=== PATIENT | male | born 1955 | race Caucasian/White ===

== ENCOUNTER 2018-10-01 01:36 | Inpatient (IN) ==
[2018-10-01] MEDS ORDERED: ASPIRIN PO ONE (01:41)
--- NOTE | 2018-10-01 02:14 | PROVIDER DOCUMENTATION ---
HPI-Chest Pain - General Chief Complaint: Chest Pain Stated Complaint: chest pain Time Seen by Provider: 10/01/18 02:11 Allergies/Adverse Reactions: Patient Allergies Allergy/AdvReac Type Severity Reaction Status Date / Time Penicillins Allergy Mild RASH Verified 09/30/15 04:10 Home Medications: Home Medication List Medication Instructions Recorded Confirmed Last Taken Type Amlodipine Besylate 10 mg PO DAILY 07/17/13 09/30/15 09/29/15 19:00 History Fenofibrate 160 mg PO DAILY 07/17/13 09/30/15 09/29/15 19:00 History Isosorbide Mononitrate E.r. [Imdur] 60 mg PO DAILY 07/17/13 09/30/15 09/29/15 19:00 History Metoprolol Succinate E.r. [Toprol 100 mg PO DAILY 07/17/13 09/30/15 09/29/15 19:00 History Xl] Omeprazole [Prilosec] 20 mg PO DAILY 07/17/13 09/30/15 09/29/15 20:00 History Zolpidem [Ambien] 10 mg PO QHS 07/17/13 09/30/15 09/28/15 20:00 History ATORVAstatin [Lipitor] 40 mg PO DAILY 12/10/13 09/30/15 09/29/15 19:00 History Nitroglycerin [Nitrostat] 0.4 mg SL PRN PRN 12/10/13 09/30/15 09/30/15 03:00 History Aspirin 325 mg PO DAILY #0 12/13/13 09/30/15 09/29/15 19:00 Rx Clopidogrel [Plavix] 75 mg PO DAILY #0 12/13/13 09/30/15 09/29/15 19:00 Rx - History of Present Illness-CP Nature of Presenting Problem: A 63 Y/O MALE WITH PMH OF CAD S/P CABG AND STENTS, GRAFT FAILURE PRESENTS WITH CP 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 RADIATES TO BACK AND SHOULDERS. HAS SOME NAUSEA. DENIES ANY OTHER SYMPTOMS EXCEPT FOR MILD SOB. SMOKES+, ALCOHOL+. DENIES ILLICITS. Location: reports: substernal, central Chest Pain Radiation: reports: shoulders, back Quality of Pain: reports: sharp Severity in ED: moderate Onset/Duration: abrupt, just prior to arrival Timing: still present, intermittent Context/Activities at Onset: reports: sleep Modifying Factors: improves with: nothing Associated Symptoms: reports: shortness of breath. denies: diaphoresis, dizziness, edema, fatigue, fever/chills, headache, heartburn, nausea, rash, syncope, vomiting Nitro Today/Relief: no nitro taken today Aspirin Treatment Today: 325 mg x 1 Prior Chest Pain/Cardiac Workup: reports: heart attack Similar Symptoms Previously?: Yes Recently Seen Here or By Another Healthcare Provider: No Review of Systems - Adult - REVIEW OF SYSTEMS - ADULT Constitutional: denies: no symptoms reported Eyes: denies: no symptoms reported Ears, Nose, Mouth & Throat: denies: no symptoms reported Cardiovascular: reports: see HPI Respiratory: reports: see HPI Gastrointestinal: denies: no symptoms reported Genitourinary: denies: no symptoms reported Musculoskeletal: denies: no symptoms reported Integumentary: denies: no symptoms reported Neurological: denies: no symptoms reported Psychiatric: denies: no symptoms reported Endocrine: denies: no symptoms reported Hematologic/Lymphatic: denies: no symptoms reported Allergic/Immunologic: denies: no symptoms reported Past History - Adult - PAST MEDICAL HISTORY-ADULT Review of Records: reports: Old Records Reviewed, Nursing Assessment Review, Medications Reviewed, Social history reviewed & non-contributory. Major Childhood Illnesses: reports: denies history Cardiovascular: reports: CAD, HTN, hyperlipidemia, [place] Respiratory: reports: asthma, COPD Genitourinary: reports: prostate cancer - PRIOR SURGERIES/PROCEDURES Surgical/Procedure History: reports: CABG, cardiac stent, joint replacement (tot al knee), other (TURP) - PRIOR HOSPITALIZATIONS Prior Hospitalizations: reports: for similar symptoms - IMMUNIZATION STATUS Childhood Immunizations: See Nurse Assessment Flu Vaccine: See Nurse Assessment - FAMILY HISTORY Family History: reviewed, not pertinent Physical Exam-General - PHYSICAL EXAM-ADULT Initial Vital Signs Reviewed: Yes - CONSTITUTIONAL General Appearance: mild distress - EYES Eyes: PERRL/EOMI - HEAD, EARS, NOSE, MOUTH & THROAT HENMT: normocephalic/atraumatic, moist mucous membranes, normal ENT inspection - NECK Neck: supple - RESPIRATORY Respiratory: chest non-tender, wheezing - CARDIOVASCULAR Cardiovascular: regular rate, rhythm, no edema, no JVD, no murmur - GASTROINTESTINAL (ABDOMEN) Abdominal Exam: non tender, soft - MUSCULOSKELETAL Back Exam: normal inspection Extremity: no pedal edema Peripheral Pulses: radial (R): 2+, radial (L): 2+ - SKIN Integumentary: normal color, warm/dry - NEUROLOGIC Neurologic: grossly normal - PSYCHIATRIC Psych/Mental Status: normal mood/affect, normal thought content, normal thought process, oriented x 3 - HEART Score HEART Score: History: Moderately Suspicious HEART Score: ECG: Non-Specific Repolarization Disturbance/LBBB/PM HEART Score: Age: 45-65 Years HEART Score: Risk Factors for Atherosclerotic Disease: > or = 3 Risk Factors or History of Atherosclerotic Disease HEART Score: Troponin: < or = Normal Limit Total HEART Score:: 5 Progress - PLAN OF CARE/RESULTS Progress/Plan/Lab Results: Vital Signs - 8 hr 10/01/18 01:38 10/01/18 02:15 Temperature 97.5 F L Pulse Rate 79 85 Respiratory Rate 18 16 Blood Pressure 125/0 O2 Sat by Pulse Oximetry 97 Laboratory Results - last 24 hr 10/01/18 10/01/18 10/01/18 01:55 01:55 01:55 WBC 9.54 RBC 4.38 L Hgb 14.7 Hct 41.5 L MCV 94.7 MCH 33.6 H MCHC 35.4 RDW Std Deviation 12.6 Plt Count 172 MPV 9.6 Immature Gran % (Auto) 0.4 Neut % (Auto) 62.4 Lymph % (Auto) 19.5 L Kimball % (Auto) 12.1 H Eos % (Auto) 5.1 Baso % (Auto) 0.5 Immature Gran # (Auto) 0.04 Neut # (Auto) 5.95 Lymph # (Auto) 1.86 Kimball # (Auto) 1.15 H Eos # (Auto) 0.49 Baso # (Auto) 0.05 PT INR PTT (Actin FS) Sodium 139 Potassium 3.3 L Chloride 101 Carbon Dioxide 27 Anion Gap 11 BUN 9 Creatinine 0.8 Estimated GFR/1.73 m2 > 60 BUN/Creatinine Ratio 11 Glucose 109 H Calculated Osmolality 277 Calcium 9.0 Total Bilirubin 0.49 AST 14 ALT 14 Alkaline Phosphatase 69 Creatine Kinase 135 Troponin T Ewe-M-Xvqhrafnssr Pept 123 Total Protein 6.4 Albumin 3.8 Globulin 2.6 Albumin/Globulin Ratio 1.5 10/01/18 10/01/18 01:55 01:55 WBC RBC Hgb Hct MCV MCH MCHC RDW Std Deviation Plt Count MPV Immature Gran % (Auto) Neut % (Auto) Lymph % (Auto) Kimball % (Auto) Eos % (Auto) Baso % (Auto) Immature Gran # (Auto) Neut # (Auto) Lymph # (Auto) Kimball # (Auto) Eos # (Auto) Baso # (Auto) PT 13.1 INR 0.92 PTT (Actin FS) 37.3 Sodium Potassium Chloride Carbon Dioxide Anion Gap BUN Creatinine Estimated GFR/1.73 m2 BUN/Creatinine Ratio Glucose Calculated Osmolality Calcium Total Bilirubin AST ALT Alkaline Phosphatase Creatine Kinase Troponin T < 0.010 Ilp-T-Lzsdoutrvbd Pept Total Protein Albumin Globulin Albumin/Globulin Ratio Orders Category Date Time Status Cardiac Monitoring DIRECTED Care 10/01/18 01:41 Active Oxygen Therapy- ED Nursing DIRECTED Care 10/01/18 01:41 Active Saline Loc NOW Care 10/01/18 01:41 Active CHEST-PORTABLE [RAD] Stat Exams 10/01/18 02:05 Taken CBC WITH ELECTRONIC DIFF [HEME] Stat Lab 10/01/18 01:55 Completed CK PROFILE [SP CHEM] Stat Lab 10/01/18 01:55 Completed COMPREHENSIVE METABOLIC PANEL [CHEM] Stat Lab 10/01/18 01:55 Completed PRO B-NATRIURETIC PEPTIDE Stat Lab 10/01/18 01:55 Completed PROTIME WITH INR [COAG] Stat Lab 10/01/18 01:55 Completed PTT [COAG] Stat Lab 10/01/18 01:55 Completed TROPONIN T Stat Lab 10/01/18 01:55 Completed Albuterol 2.5MG/Ipratrop 0.5MG [Duoneb (A & A)] Med 10/01/18 02:15 Discontinued 3 ml INH NOW ONE Aspirin Med 10/01/18 01:41 Discontinued 325 mg PO NOW ONE Nitroglycerin Med 10/01/18 02:15 Discontinued 1 inch TOP NOW ONE Aerosol Treatments Routine Oth 10/01/18 02:17 Completed Aerosol Treatments Stat Oth 10/01/18 02:17 Completed CP/SOB/Palp >45 yrs of Age Stat Oth 10/01/18 01:41 Ordered EKG [EKG] Stat Ther 10/01/18 01:41 Ordered Result Diagrams: 10/01/18 01:55 10/01/18 01:55 - CONSULTS/PCP/HOSPITALIST Notification #1 *Consult/PCP/Hospitalist*: DR MCGEE Time Discussed: 04:21 Consult Disposition: Admit (r/o ACS) Departure - Departure Date of Disposition Decision: 10/01/18 Time of Disposition Decision: 04:22 DIAGNOSIS: Chest pain Disposition: ADMITTED INPATIENT 09 Certified Medical Emergency: Emergent Condition: Stable Referrals and Follow-Ups: Oliver Slaughter MD [Primary Care Provider] - - Critical Care Note This patient required my direct & personal management of CC.: No Attestation - Physician/ SANTOS Attestation Patient care was provided by Advanced Practice Provider:: No The physician spent face to face time with patient:: Yes Advanced Practice Provider documentation review:: Supervising physician onsite and consulted in the evaluation and care of this patient. The physician did have a face to face encounter with the patient.
[2018-10-01] MEDS ORDERED: DUONEB (A & A) INH ONE (02:15)
[2018-10-01] MEDS ORDERED: NITROGLYCERIN TOP ONE (02:15)
[2018-10-01 02:30] LABS: BASO# 0.05 X1000 (0.0-0.2); BASO% 0.5 % (0.0-0.8); EOS# 0.49 X1000 (0.0-0.7); EOS% 5.1 % (0.0-10.0); HEMATOCRIT 41.5 % (42.0-52.0); HEMOGLOBIN 14.7 g/dL (14.0-18.0); IMM GRAN# 0.04 X1000 (0.0-0.04); IMM GRAN% 0.4 % (0.0-0.5); LYMPH# 1.86 X1000 (1.2-3.4); LYMPH% 19.5 % (20.5-51.1); MCH 33.6 PG (27-31); MCHC 35.4 g/dL (33-37); MCV 94.7 FL (81-99); MONO# 1.15 X1000 (0.11-0.59); MONO% 12.1 % (1.7-9.3); MPV 9.6 FL (7.4-10.4); NEUT# 5.95 X1000 (1.4-6.5); NEUT% 62.4 % (42.2-75.2); PLT 172 X1000 (130-400); RBC 4.38 XMIL (4.7-6.1); RDW 12.6 % (11.5-14.5); WBC 9.54 X1000 (4.8-10.8)
[2018-10-01 02:54] LABS: AGAP 11; ALB/GLOB RATIO 1.5; ALBUMIN 3.8 g/dL (3.5-5.0); ALKALINE PHOSPHATASE 69 U/L (32-122); BUN 9 mg/dL (8-22); CHLORIDE 101 mmol/L (98-107); CK PROFILE 135 U/L (24-204); COSMO 277; CREATININE 0.8 mg/dL (0.7-1.2); ESTIMATED GFR > 60; GLUCOSE 109 mg/dL (70-104); GOT 14 U/L (10-34); GPT 14 U/L (10-44); POTASSIUM 3.3 mmol/L (3.5-5.1); SODIUM 139 mmol/L (136-145); TCO2 27 mmol/L (25-35); TOTAL BILIRUBIN 0.49 mg/dL (0.20-1.00); TOTAL PROTEIN 6.4 g/dL (6.3-8.3)
[2018-10-01 02:55] LABS: INR 0.92; PROTIME 13.1 Seconds (11.0-16.0); PTT 37.3 Seconds (22.3-41.8)
[2018-10-01] MEDS ORDERED: ZOFRAN IV PRN (05:03)
[2018-10-01] MEDS ORDERED: NITROGLYCERIN SL PRN (05:03)
[2018-10-01] MEDS ORDERED: NICODERM PATCH TD PRN (05:12)
[2018-10-01] MEDS: POTASSIUM CHLORIDE 20 MEQ/SWI 20 MEQ/100 ML IVPB IV SCH ×2 (05:35→07:52)
[2018-10-01] MEDS: MORPHINE IV PRN ×5 (06:00→22:35)
--- NOTE | 2018-10-01 07:16 | Diag Imaging Result Doc PS360 ---
EXAM: CT ANGIOGRAM THORAX/ABDOMEN HISTORY: chest/abdominal pain. ? hx of aortic aneurysm TECHNIQUE: 1. Emergent CT angiogram of the chest with contrast. MIP images obtained. 2. Emergency CT angiogram abdomen with contrast. MIP images obtained. COMPARISON: Chest compared to 02/06/2018 FINDINGS: Chest: Trace right pleural fluid. No left pleural fluid. There is a tiny pericardial effusion. Prominent atherosclerosis. Mild cardiomegaly. No thoracic aortic aneurysm or dissection. There are small mediastinal nodes. Sternal wires are present. Mild emphysema. There are scattered granuloma. BX probably cysts atelectasis in the right lung base. ABDOMEN: No aortic aneurysm or dissection. Moderate atherosclerosis. There is fatty infiltration of the liver. The gallbladder is contracted. No calcified stones. Normal spleen, pancreas, and adrenal glands. No renal stones. No hydronephrosis. No ascites. No bowel obstruction. IMPRESSION: Chest: 1. No aortic aneurysm or dissection 2. Trace right pleural fluid with a small pericardial effusion a mild cardiomegaly 3. Prominent atherosclerosis 4. Emphysema ABDOMEN: 1. No aortic aneurysm or dissection. Prominent atherosclerosis. 2. There is fatty infiltration of the liver This exam was performed using automated exposure control, adjustment of mA or kV according to patient size, and/or use of iterative reconstruction technique. Electronically signed by Santiago Dahl 10/01/2018 7:14 AM
--- NOTE | 2018-10-01 07:44 | Diag Imaging Result Doc PS360 ---
EXAM: CHEST-PORTABLE HISTORY: cp TECHNIQUE: Chest single view COMPARISON: 10/23/2015 FINDINGS: The lungs are well expanded. The heart is not enlarged. Sternal wires are present. Mild vascular distention. Atelectasis versus tiny infiltrates in the lung bases. IMPRESSION: Mild cardiomegaly with mild pulmonary edema and basilar atelectasis. Electronically signed by Santiago Dahl 10/01/2018 7:42 AM
[2018-10-01] MEDS: PRILOSEC PO SCH (07:51)
--- NOTE | 2018-10-01 08:33 | HISTORY AND PHYSICAL ---
CHIEF COMPLAINT: Upper abdominal pain. HISTORY OF PRESENT ILLNESS: The patient is a 63-year-old male with a history of coronary artery disease, hypertension, hyperlipidemia, GERD, COPD, sleep apnea. He presents with approximately 3 days of pain, primarily high in the left upper quadrant with some extension into the left lower lateral chest wall and some extension across to the right upper quadrant. It is primarily pleuritic in nature. He has not noted any other aggravating or alleviating symptoms. He has also had some increased nonproductive cough for the same period. He has not noted any shortness of breath, diaphoresis, nausea, vomiting, fever, chills, diarrhea. He also states that he has a history of an aneurysm but is unable to clarify the size, location, or nature of the aneurysm. On review of imaging here, he had a minimal dilation of the ascending aorta on a CTA a couple years ago but no michelle aneurysm at that time. Initial evaluation in the ED is largely unremarkable. He is being admitted for further evaluation and possibly treatment. REVIEW OF SYSTEMS: Twelve point review of systems negative except as per HPI. PAST MEDICAL HISTORY: 1. Coronary artery disease with bypass surgery in 1998. 2. Hypertension. 3. Hyperlipidemia. 4. Chronic obstructive pulmonary disease. 5. Obstructive sleep apnea. 6. Obesity. PAST SURGICAL HISTORY: Total knee replacements, TURP, CABG, cardiac stents. SOCIAL HISTORY: The patient is approximately a 1 pack per day smoker for 30-40 years. Has cut back somewhat. Drinks 10 to 15 beers per week. Denies illicit drug use. FAMILY HISTORY: Mother and father both with MIs. LABS: WBC 9.5, hemoglobin 14.7, hematocrit 41.5, platelets 172,000. Sodium 139, potassium 3.3, BUN 9, creatinine 0.8, glucose 109. LFTs unremarkable. CK 135, troponin negative. BNP 123. IMAGING: Chest x-ray with read pending but appears to have cardiomegaly. No other obvious acute findings. VITALS: T-max 97.5 degrees, pulse 85, respirations 16, systolic blood pressure 125, O2 saturation 97% on room air. PHYSICAL EXAMINATION: GENERAL: No acute distress. VITALS: As above. HEENT: Normocephalic, atraumatic. Moist mucous membranes. No cervical adenopathy. CARDIOVASCULAR: Regular rate and rhythm. No murmurs noted. PULMONARY: Clear to auscultation bilaterally. No wheezing, rales, or rhonchi. ABDOMEN: Soft. Minimal left upper quadrant tenderness, otherwise nontender. Bowel sounds positive. EXTREMITIES: Peripheral pulses decreased but intact. Trace right lower extremity and 1+ left lower extremity edema, which the patient states is chronic since previous vein harvest. NEUROLOGIC: Cranial nerves grossly intact. No focal deficits identified. PSYCHIATRIC: Normal mood and affect. Awake, alert, oriented x3. SKIN: No new rashes or lesions identified. ASSESSMENT AND PLAN: 1. Abdominal/left lower chest wall pain. Suspect patient has a viral upper respiratory infection with musculoskeletal pain related to cough but given unclear history of aneurysm, we will obtain a scan to make sure this is not something that will end up needing to be transferred to [facility]. Low suspicion for cardiac etiology but we will trend troponins. EKG stable from previous. No pulsatile mass on abdominal exam. Continue tight blood pressure control starting with his home medications. Monitor closely, pending results of CTA. 2. Coronary artery disease. Continue aspirin and Plavix for now, and monitor. 3. Hypertension. Continue home antihypertensives. Monitor blood pressure closely. 4. Hyperlipidemia. Continue home medications. 5. Gastroesophageal reflux disease. Continue home medications. 6. Sleep apnea. Encourage CPAP use. 7. Tobacco abuse. Patient counseled on cessation. We will provide a nicotine patch.
[2018-10-01] MEDS ORDERED: IMDUR PO SCH ×2 (09:00→17:30)
[2018-10-01] MEDS ORDERED: ASPIRIN PO SCH ×2 (09:00→17:30)
[2018-10-01] MEDS ORDERED: TOPROL XL PO SCH ×2 (09:00→17:30)
[2018-10-01] MEDS ORDERED: PLAVIX PO SCH ×2 (09:00→17:30)
[2018-10-01] MEDS ORDERED: NORVASC PO SCH ×2 (09:00→17:30)
[2018-10-01] MEDS ORDERED: KLOR-CON PO ONE (13:45)
[2018-10-01] MEDS ORDERED: LIPITOR PO SCH (21:00)
[2018-10-02] MEDS: MORPHINE IV PRN ×2 (02:28→06:20)
[2018-10-02 06:15] LABS: BASO# 0.05 X1000 (0.0-0.2); BASO% 0.6 % (0.0-0.8); EOS# 0.32 X1000 (0.0-0.7); HEMATOCRIT 42.5 % (42.0-52.0); HEMOGLOBIN 14.7 g/dL (14.0-18.0); IMM GRAN# 0.02 X1000 (0.0-0.04); IMM GRAN% 0.3 % (0.0-0.5); LYMPH# 1.52 X1000 (1.2-3.4); LYMPH% 19.2 % (20.5-51.1); MCH 33.3 PG (27-31); MCHC 34.6 g/dL (33-37); MCV 96.4 FL (81-99); MONO# 1.22 X1000 (0.11-0.59); MONO% 15.4 % (1.7-9.3); MPV 9.6 FL (7.4-10.4); NEUT# 4.78 X1000 (1.4-6.5); NEUT% 60.5 % (42.2-75.2); PLT 168 X1000 (130-400); RBC 4.41 XMIL (4.7-6.1); RDW 12.7 % (11.5-14.5); WBC 7.91 X1000 (4.8-10.8)
[2018-10-02] MEDS: PRILOSEC PO SCH (06:20)
[2018-10-02 06:34] LABS: CHOLESTEROL 117 mg/dL (0-200); HDL 41 mg/dL (35-55); LDL 54 mg/dL; TRIGLYCERIDES 112 mg/dL (39-160); VLDL 22 mg/dL
[2018-10-02 07:25] LABS: AGAP 13; ALB/GLOB RATIO 1.3; ALBUMIN 3.5 g/dL (3.5-5.0); ALKALINE PHOSPHATASE 63 U/L (32-122); BUN 8 mg/dL (8-22); CALCIUM 8.6 mg/dL (8.8-10.2); CHLORIDE 102 mmol/L (98-107); COSMO 276; CREATININE 0.7 mg/dL (0.7-1.2); ESTIMATED GFR > 60; GLUCOSE 100 mg/dL (70-104); GOT 11 U/L (10-34); GPT 11 U/L (10-44); POTASSIUM 4.1 mmol/L (3.5-5.1); SODIUM 139 mmol/L (136-145); TCO2 24 mmol/L (25-35); TOTAL BILIRUBIN 1.23 mg/dL (0.20-1.00); TOTAL PROTEIN 6.2 g/dL (6.3-8.3)
[2018-10-02 07:30] VITALS: BP 143/69
--- NOTE | 2018-10-02 08:11 | EKG Report ---
Test Performed on : 10/02/2018 07:48:13 AM Test Reason : chest pain/post CABG Blood Pressure : / mmHG Vent. Rate : 063 BPM Atrial Rate : 063 BPM P-R Int : 148 ms QRS Dur : 092 ms QT Int : 396 ms P-R-T Axes : 033 057 032 degrees QTc Int : 405 ms Normal sinus rhythm. Normal ECG When compared with ECG of 01-OCT-2018 01:51, (Unconfirmed) No significant change was found Confirmed by Jared WEBER, Tip Adam ([id number]) on 10/03/2018 12:42:14 PM
[2018-10-02] MEDS ORDERED: SOLU-MEDROL IV ONE (09:57)
--- NOTE | 2018-10-02 10:32 | CARDIOLOGY CONSULTATION ---
DATE: 10/02/2018 CONSULTATION REQUESTED BY: Hospitalist service. REASON: Chest pain. HISTORY: Mr. Curtis is a 63-year-old male who appears to be quite intelligent and pretty much aware of what is going on, who presented to the emergency room on October 01 shortly after midnight because for 2 or 3 days he had experienced recurrent left anterior chest discomfort that is pleuritic in nature, worsened by cough and sometimes by motion. He states that this type of pain happens to him about twice a year and typically he goes to his primary doctor, Oliver Slaughter, who prescribes the steroids and antibiotics and this goes away. This time they decided to keep him in the hospital for observation. They have done multiple troponin levels, a total of 6 troponin levels beginning at 1:55 in the morning on October 01, ending at 5:34 this morning. All are negative. They have done serial EKGs that show sinus rhythm, inferior scar and questionable ST abnormality like elevation to suspect pericarditis in the leads 2, 3, F, L, a little J-point elevation, very subtle in V4, V5, V6 and a little depression in AVR. His proBNP level was normal at 123 pg/mL. His lipid panel, total cholesterol 117, LDL 54, HDL 41. The patient very clearly explains that this is not the pain that he has experienced with his coronary disease. PAST HISTORY: 1. Positive for severe coronary artery disease, coronary bypass surgery and previous stents. 2. History of hyperlipidemia, which is evidently optimally controlled. 3. History of hypertension, which based on blood pressure measurements noted during this admission, they have done about 20 blood pressure measurements. All of those are within normal range. 4. History of COPD. 5. Obstructive sleep apnea. 6. History of arthritis. SURGICAL HISTORY: 1. Left total knee replacement in the past. 2. Skin cancer removed from the anterior chest. 3. Coronary bypass surgery [place] [address] Cordova. It was a quadruple bypass. 4. He was found to have prostate cancer and has had a complete his prostatectomy. There is no residual cancer. 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 He is to his for 15 years. He still smokes half a pack of cigarettes a day. I pointed out to him that he must quit smoking. He has been found to have an aortic aneurysm and has been followed by Dr. Sarah in [place]. However, yesterday, we did a CT scan of the chest in addition to abdomen and pelvis that shows really no indication of any aneurysm. There is fatty infiltration of the liver and prominent atherosclerosis. Of note, they noted a right pleural fluid with a small pericardial effusion and mild cardiomegaly. REVIEW OF SYSTEMS: Besides what I have reported including cardiopulmonary, neurological, gastrointestinal, genitourinary, musculoskeletal, skin, immunological, hearing, visual, etc., is noncontributory. FAMILY HISTORY: Both parents suffered coronary disease and , mother in her 60's, father in his 80's. HOME MEDICINES: 1. Amlodipine 10 mg at bedtime. 2. Aspirin 325 daily. 3. Plavix 75 daily. 4. Isosorbide mononitrate 60 at bedtime. 5. Metoprolol ER 100 mg at bedtime. 6. Omeprazole 20 mg at bedtime. 7. Zolpidem 10 mg at bedtime. PHYSICAL EXAMINATION: Vital signs: Blood pressure 143/69, temperature 97.8 degrees, pulse 68, respirations 18. General: Patient is awake, alert, oriented, in no distress. HEENT: Unremarkable. Chest: Clear to auscultation and percussion. Heart: Regular and rhythmic. Distant. I did not hear any rub. Abdomen: Soft, nontender. No masses. No hepatomegaly. Extremities: Show good pulses. No peripheral edema. Neurologic: Nonfocal. Moves 4 extremities. LABORATORY: Blood work: White cell count 7910, hemoglobin 14.7, hematocrit 42.5. Sodium 139, potassium 4.1, BUN 8, creatinine 0.7. IMPRESSION: 1. Patient presenting with what appears to be noncardiac chest pain. This is very much sounding like pleuro-pericarditis. He does have a small pericardial effusion noted on CT scan of the chest. He has had previous bouts of the same condition and has improved with steroids. 2. Severe coronary artery disease, previous coronary artery bypass surgery. Previous stents. 3. History of hypertension, well controlled. 4. History of hyperlipidemia, optimally controlled. 5. Persistent tobacco abuse and COPD. RECOMMENDATION: At this time, I would suggest to him to quit smoking immediately. I am going to check inflammatory markers, C-reactive protein and sedimentation rate. If they are elevated, I will probably go ahead and give him Solu-Medrol 1 shot. I will check a uric acid level just to make sure that he does not have gout, which may help us to make a decision as far as whether or not he might benefit from long-term therapy with colchicine to prevent recurrence of this pleuro- pericarditis. If everything is negative and the patient is feeling better, he may go home and he could probably make an appointment to follow up with Dr. Sosa in case his chest pain recurs, which at this time in my opinion does not sound cardiac at all. cc: Trey Schilling MD MTDD
--- NOTE | 2018-10-03 07:46 | EKG Report ---
Test Performed on : 10/01/2018 01:51:15 AM Test Reason : cp Blood Pressure : / mmHG Vent. Rate : 078 BPM Atrial Rate : 078 BPM P-R Int : 152 ms QRS Dur : 100 ms QT Int : 372 ms P-R-T Axes : 066 062 040 degrees QTc Int : 424 ms Normal sinus rhythm. Normal ECG When compared with ECG of 30-SEP-2015 06:06, Nonspecific T wave abnormality now evident in Inferior leads Unconfirmed Result
--- NOTE | 2018-10-05 05:36 | DISCHARGE SUMMARY ---
ADMISSION DATE: 10/01/2018 DISCHARGE DATE: 10/02/2018 PRINCIPAL DIAGNOSIS: Atypical chest pain. SECONDARY DIAGNOSES: 1. Coronary disease. 2. Hypertension. 3. Hyperlipidemia. 4. Tobacco use. 5. History of chronic obstructive pulmonary disease. CONSULTATIONS DURING HOSPITAL STAY: Dr. Trey Schilling MD Cardiology 10/02/2018. PROCEDURES DONE DURING THIS HOSPITAL STAY: CTA of the abdomen and pelvis 10/01/2018. HOSPITAL COURSE: Mr. Madhu Curtis is a 63-year-old male who has history of hypertension, hyperlipidemia, gastroesophageal reflux, COPD, and sleep apnea. He presents to the hospital because of left-sided chest pain. He had a CTA of the chest as well as the abdomen. It showed no aneurysm or dissection. There was trace right pleural fluid with small pericardial effusion as well as mild cardiomegaly as well as evidence of emphysema. Cardiology team was consulted with regards to the chest pain. However, while patient was receiving care, he decided to leave the hospital against medical advice. cc: Amish Fountain MD
== END 2018-10-02 11:50 | disposition left against medical advice (07) | DRG 316 ==
LOC: ED 01:36 → EDIPHOLD 06:25 → SUATTDRO 06:25 → 4N 13:02
PROVIDERS: ATTEND Internal Medicine
CPT/HCPCS: 71010; 71045; 71275; 74175; 80053; 80061; 82550; 83880; 84484; 84550; 85025; 85610; 85651; 85730; 86140; 93005; 93010; 94640; 96365; 96366; 96375; 96376; 99285; A9270; J2270; J2930; J3480; Q9967